=== PATIENT | female | born 1945 | race Caucasian/White ===

== ENCOUNTER 2016-10-25 16:16 | Emergency (ER) | payer OTHER ==
[2016-10-25 16:24] VITALS: BP 147/71
--- NOTE | 2016-10-25 16:24 | UC ---
Skin Complaint HPI - HPI Summary HPI Summary: 71 YEAR OLD FEMALE PRESENTS WITH COMPLAINS OF LEFT LEG CELLULITIS. - History of Current Complaint Chief Complaint: UCSkin Time Seen by Provider: 10/25/16 16:22 Stated Complaint: SKIN COMPLAINT Hx Obtained From: Patient Onset/Duration: Sudden Onset Skin Exposure Onset/Duration: Days Ago Onset Severity: Moderate Current Severity: Moderate Pain Scale Used: 0-10 Numeric - 5 Location: Diffuse Aggravating: Nothing Alleviating: Nothing Associated Signs & Symptoms: Positive: Negative - Allergy/Home Medications Allergies/Adverse Reactions: Allergies Allergy/AdvReac Type Severity Reaction Status Date / Time Metformin Allergy Unknown Verified 03/31/12 06:46 Reaction Details Home Medications: Home Medications Omeprazole 40 mg PO 10/25/16 [History] Review of Systems Constitutional: Negative Skin: Other - LEFT LEG CELLULITIS Eyes: Negative ENT: Negative Respiratory: Negative Cardiovascular: Negative Gastrointestinal: Negative Genitourinary: Negative Motor: Negative Neurovascular: Negative Musculoskeletal: Negative Neurological: Negative Psychological: Negative All Other Systems Reviewed And Are Negative: Yes PMH/Surg Hx/FS Hx/Imm Hx Previously Healthy: Yes - Surgical History Surgical History: Yes Surgery Procedure, Year, and Place: 1988 [facility] [place]. 1994 HYSTERECTOMY [facility] [place]. 2002 [facility] [place]. 2012 HIP FX ORIF [facility] [place] - Social History Alcohol Use: None Substance Use Type: None, Prescribed Smoking Status (MU): Never Smoked Tobacco Physical Exam Triage Information Reviewed: Yes Vital Signs: Initial Vital Signs Temp 37.3 C 10/25/16 16:20 Pulse 88 10/25/16 16:20 Resp 18 10/25/16 16:20 BP 147/71 10/25/16 16:20 Pulse Ox 98 10/25/16 16:20 Eye Exam: Normal ENT Exam: Normal Dental Exam: Normal Neck exam: Normal Neck: Positive: 1 Respiratory Exam: Normal Cardiovascular Exam: Normal Abdominal Exam: Normal Musculoskeletal Exam: Normal Neurological Exam: Normal Psychological Exam: Normal Skin Exam: Normal Course/Dx - Diagnoses Provider Diagnoses: LEFT LEG CELLULITIS Discharge - Discharge Plan Condition: Stable Disposition: HOME Prescriptions: Sulfamethox/Trimethoprim DS* [Bactrim DS 800/160 TAB*] 1 tab PO BID #14 tab Patient Education Materials: Cellulitis (ED) Referrals: Adam Simpson MD [Primary Care Provider] -
== END 2016-10-25 16:30 | disposition home or self-care (01) ==
LOC: UCEAST 16:16
DX: L03.116 Cellulitis of left lower limb (principal); Z90.710 Acquired absence of both cervix and uterus; Z88.8 Allergy status to other drugs, medicaments and biological substances
CPT/HCPCS: 99202; G0463

== ENCOUNTER 2016-11-08 11:46 | Emergency (ER) | payer OTHER ==
--- NOTE | 2016-11-08 13:40 | RAD ---
INDICATION: Left leg edema and pain. COMPARISON: Comparison is made with a prior study from July 01, 2006. TECHNIQUE: Multiple real-time, color flow and Doppler tracings of the left lower extremity were obtained. FINDINGS: The common femoral, femoral, profunda femoral and popliteal veins all demonstrate normal compressibility, augmentation with compression and phasic response with respiration. The posterior tibial and peroneal veins demonstrate normal compressibility and augmentation with compression. There is edema in the calf. There are multiple enlarged left inguinal lymph nodes. The largest measures 2.4 x 1.6 x 2.0 cm. IMPRESSION: 1. SLIGHTLY LIMITED STUDY , NO EVIDENCE FOR DEEP VENOUS THROMBOSIS. 2. MULTIPLE ENLARGED LEFT INGUINAL LYMPH NODES.
[2016-11-08 13:54] LABS: Hematocrit 35 % (35-47); Hemoglobin 11.7 g/dl (12.0-16.0); Mean Corpuscular HGB Conc 33 g/dl (31-36); Mean Corpuscular Hemoglobin 28 pg (27-31); Mean Corpuscular Volume 83 fL (80-97); Red Blood Count 8.6 10^6/ul (4.0-5.4); White Blood Count 8.6 10^3/ul (3.5-10.8)
[2016-11-08 13:55] LABS: Mean Platelet Volume 8 um3 (7.4-10.4); Red Cell Distribution Width 15 % (10.5-15)
[2016-11-08 14:02] LABS: Calcium 8.5 mg/dL (8.6-10.3); EGFR African American 70.5 (>60); EGFR Non-African American 54.8 (>60); Potassium 4.1 mmol/L (3.5-5.0); Total Protein 6.3 g/dL (6.4-8.9)
[2016-11-08 14:03] LABS: Albumin 3.8 g/dL (3.2-5.2); C Reactive Protein 4.11 mg/L (< 5.00); Globulin 2.5 g/dL (2-4); Total Bilirubin 0.4 mg/dL (0.2-1.0)
--- NOTE | 2016-11-08 14:31 | ED ---
Yvrose Angeles Alfonso, scribed for Zay Rodrigez MD on 11/08/16 at 1216 . Lower Extremity - HPI Summary HPI Summary: Patient is a 71 y.o F presenting to [facility] with a chief complaint of constant LLE swelling, pain, and erythema that began one week ago. Patient reports that 2 weeks ago, she had an ulcer on her leg that her dog scratched off. On she presented to [facility] with a provider diagnosis of left leg cellulitis and a prescription for Bactrim (one week). Antibiotics did not resolve symptoms. Symptoms are aggravated and alleviated by nothing. She rates pain 5/10 in severity. Patient denies fever, chills, SOB, and RLE swelling. She denies tobacco or alcohol use. PSHx left hip replacement. PMHx HTN and DM. - History of Current Complaint Chief Complaint: EDExtremityLower Stated Complaint: LEFT LEG PAIN Time Seen by Provider: 11/08/16 11:56 Hx Obtained From: Patient Mechanism Of Injury: Other - dog scratch Onset of Pain: Days - 1 week Onset/Duration: Weeks - 1 week Severity Currently: Moderate Pain Intensity: 5 Pain Scale Used: 0-10 Numeric Timing: Constant Location: Is Discrete @ - LLE Associated Signs And Symptoms: Positive: Swelling, Redness, Other - LLE Pain Aggravating Factor(s): Nothing Alleviating Factor(s): Nothing - Allergies/Home Medications Allergies/Adverse Reactions: Allergies Allergy/AdvReac Type Severity Reaction Status Date / Time Metformin Allergy Unknown Verified 11/08/16 14:02 Reaction Details PMH/Surg Hx/FS Hx/Imm Hx Endocrine/Hematology History: Reports: Hx Diabetes - type 2 dm Cardiovascular History: Reports: Hx Hypertension Musculoskeletal History: Reports: Hx Arthritis - RT KNEE Sensory History: Reports: Hx Contacts or Glasses - GLASSES INST GIVEN Denies: Hx Hearing Aid Opthamlomology History: Reports: Hx Contacts or Glasses - GLASSES INST GIVEN - Surgical History Surgery Procedure, Year, and Place: 1988 [facility] [place]. 1994 HY[facility]ERECTOMY [facility] [place]. 2002 [facility] [place]. 2011 HIP FX ORIF [facility] [place] Hx Anesthesia Reactions: No Infectious Disease History: No Infectious Disease History: Denies: Traveled Outside the [place] in Last 30 Days - Family History Known Family History: Positive: Hypertension, Diabetes - Social History Alcohol Use: None Substance Use Type: Reports: None, Prescribed Smoking Status (MU): Never Smoked Tobacco Review of Systems Negative: Fever, Chills Negative: Shortness Of Breath Positive: Other - ulcer on LLE (2 weeks ago scratched off by dog), LLE swelling , pain, and redness; negative RLE swelling All Other Systems Reviewed And Are Negative: Yes Physical Exam Triage Information Reviewed: Yes Vital Signs On Initial Exam: Initial Vitals Temp Pulse Resp BP Pulse Ox 99.0 F 89 20 151/70 97 11/08/16 11:52 11/08/16 11:52 11/08/16 11:52 11/08/16 11:52 11/08/16 11:52 Appearance: Positive: Well-Appearing, No Pain Distress Skin: Positive: Other - left leg ulcer pretibial distal leg with cellulitis and faint erythema distal half of the anterior left leg to ankle.. Eyes: Positive: EOMI Neck: Positive: Nontender Respiratory/Lung Sounds: Positive: Clear to Auscultation, Breath Sounds Present Cardiovascular: Positive: RRR. Negative: Murmur Abdomen Description: Positive: Nontender Musculoskeletal: Positive: Strength/ROM Intact, Edema Left - with erythema Neurological: Positive: Sensory/Motor Intact, Alert, Oriented to Person Place, Time, CN Intact II-III Psychiatric: Positive: Normal Diagnostics - Vital Signs Vital Signs Temp Pulse Resp BP Pulse Ox 11/08/16 11:52 99.0 F 89 20 151/70 97 - Laboratory Result Diagrams: 11/08/16 13:04 11/08/16 13:04 Lab Statement: Any lab studies that have been ordered have been reviewed, and results considered in the medical decision making process. - Additional Comments Diagnostic Additional Comments: Venous Doppler Study, per radiologist, reveals: 1. SLIGHTLY LIMITED STUDY , NO EVIDENCE FOR DEEP VENOUS THROMBOSIS. 2. MULTIPLE ENLARGED LEFT INGUINAL LYMPH NODES. ED Physician reviewed report and agrees. Lower Extremity Course/Dx - Course Course Of Treatment: 71 yr old with cellulitis after scratch by her dog. Bactrim made the cellulitis a little better over the past week. But not completly. She will be put on Augmentin and follow up with PMD. No DVT. - Diagnoses Provider Diagnoses: Cellulitis, Dog scratch, Hypertension Discharge - Discharge Plan Condition: Good Disposition: HOME Prescriptions: Amoxicillin/Clavulanate TAB* [Augmentin TAB 875*] 875 mg PO BID #20 tab Patient Education Materials: Cellulitis (ED), Leg Edema (ED), Hypertension (ED) Referrals: Adam Simpson MD [Primary Care Provider] - The documentation as recorded by the Yvrose yee Alfonso accurately reflects the service I personally performed and the decisions made by me, Zay Rodrigez MD.
[2016-11-08 14:37] VITALS: BP 145/68
[2016-11-08 15:42] LABS: Erythrocyte Sed Rate 25 mm/Hr (0-40)
== END 2016-11-08 14:36 | disposition home or self-care (01) ==
LOC: ED 11:46
DX: L03.116 Cellulitis of left lower limb (principal); M79.662 Pain in left lower leg; I10 Essential (primary) hypertension
CPT/HCPCS: 36415; 80053; 83605; 85025; 85652; 86140; 87040; 99282